=== PATIENT | female | born 1970 | race Caucasian/White ===

== ENCOUNTER → 2017-12-16 16:11 | Outpatient (CLI) | payer OTHER, SELFPAY ==
[2017-12-22 04:06] LABS: QNTFERON TB Ag Minus Nil Value 0.04 IU/mL (.); QNTFERON TB Ag Value 0.08 IU/mL (.); QNTFERON TB Mitogen Value 6.11 IU/mL (.); QNTFERON TB Nil Value 0.04 IU/mL (.)
[2017-12-24 11:56] LABS: Hep C Antibodies <0.1 s/co ratio (0.0-0.9); QNTIFERON TB Gold Negative (Negative)
== END ==
PROVIDERS: Referring Provider Dermatology Pediatric Dermatology; Visit Provider Dermatology Pediatric Dermatology
DX: L40.0 Psoriasis vulgaris (principal); Z79.899 Other long term (current) drug therapy
CPT/HCPCS: 36415; 86480; 86803

== ENCOUNTER → 2019-05-05 15:45 | Outpatient (CLI) | payer OTHER, SELFPAY ==
[2019-05-08 07:07] LABS: QNTFERON TB Mitogen Value > 10.00 IU/mL (.); QNTFERON TB Nil Value 0.06 IU/mL (.); QNTFERON TB1+ Ag Value 0.13 IU/mL (.); QNTFERON TB2+ Ag Value 0.05 IU/mL (.)
[2019-05-08 10:43] LABS: QNTIFERON TB Positive Criteria Negative (Negative)
== END ==
PROVIDERS: Referring Provider Nurse Practitioner Family; Visit Provider Nurse Practitioner Family
DX: L40.0 Psoriasis vulgaris (principal); L82.1 Other seborrheic keratosis; L81.4 Other melanin hyperpigmentation; D18.01 Hemangioma of skin and subcutaneous tissue; L57.3 Poikiloderma of Civatte; L57.8 Other skin changes due to chronic exposure to nonionizing radiation; D48.5 Neoplasm of uncertain behavior of skin; Z71.89 Other specified counseling
CPT/HCPCS: 36415; 86480